=== PATIENT | male | born 1975 | race Caucasian/White ===

== ENCOUNTER 2022-05-02 14:29 | Emergency (ER) | payer OTHER ==
[2022-05-02 15:42] LABS: HEMATOCRIT 44.7 % (35.4-49); HEMOGLOBIN 15.4 G/dL (11.7-16.9); MCH 27.8 pg (25.7-33.7); MCHC 34.5 g/dl (32.0-35.9); MEAN CELL VOLUME 80.6 fl (80-96); MEAN PLT VOLUME 7.4 fl (7.5-11.1); PLATELET COUNT 205.7 10^3/uL (134-434); RBC 5.55 10^6/uL (4.00-5.60); RDW 16.2 % (11.9-15.9)
[2022-05-02 15:50] LABS: ALBUMIN 4.1 g/dl (3.4-5.0); BILIRUBIN,TOTAL 0.9 mg/dl (0.2-1); CALCIUM 9.4 mg/dl (8.5-10); CREATININE 0.8 mg/dl (0.55-1.3); TOT PROT 7.4 g/dl (6.4-8.2)
[2022-05-02 16:25] VITALS: BP 131/83; PULSE 100; TEMP 99.2; BMI 35.3
[2022-05-02 19:52] LABS: N-TERMINAL BNP 12.4 pg/ml (5-125)
== END 2022-05-02 17:08 | disposition home or self-care (01) ==
LOC: FER 14:29
DX: R22.2 Localized swelling, mass and lump, trunk (principal)
CPT/HCPCS: 36415; 71045-TC-FY; 71260-TC; 80053; 83880; 85027; 99285-25; Q9967

== ENCOUNTER 2022-05-30 12:46 | Emergency (ER) | payer OTHER ==
[2022-05-30 12:55] VITALS: BP 141/83; PULSE 84; TEMP 98.7; BMI 34.7
== END 2022-05-30 13:14 | disposition home or self-care (01) ==
LOC: FER 12:46
DX: T85.898A Other specified complication of other internal prosthetic devices, implants and grafts, initial encounter (principal)
CPT/HCPCS: 99282-25

== ENCOUNTER 2022-12-24 06:04 | Emergency (ER) | payer OTHER ==
[2022-12-24 06:12] VITALS: BP 143/99; PULSE 73; RESP 16; TEMP 97.6; BMI 37.7
[2022-12-24] MEDS ORDERED: KETOROLAC TROMETHAMINE 30 MG/1 ML VIAL IVPUSH ONE (06:22)
[2022-12-24] MEDS ORDERED: SODIUM CHLORIDE 1,000 ML IV ONE (06:22)
[2022-12-24] MEDS ORDERED: KETOROLAC TROMETHAMINE 30 MG/1 ML VIAL ONE (06:32)
[2022-12-24 08:13] LABS: HEMATOCRIT 56.2 % (35.4-49); HEMOGLOBIN 18.9 G/dL (11.7-16.9); MCHC 33.5 g/dl (32.0-35.9); MEAN CELL VOLUME 80.7 fl (80-96); PLATELET COUNT 174.9 10^3/uL (134-434); RBC 6.97 10^6/uL (4.00-5.60); RDW 17.7 % (11.9-15.9); WHITE BLOOD COUNT 9.3 10^3/uL (4.0-10.8)
[2022-12-24 08:17] LABS: CALCIUM 9.1 mg/dl (8.5-10); CREATININE 0.8 mg/dl (0.55-1.3); TOT PROT 7.1 g/dl (6.4-8.2)
[2022-12-24] MEDS ORDERED: SODIUM CHLORIDE 0.9% 1000 ML INFUS.BAG IV ONE (08:36)
== END 2022-12-24 09:49 | disposition home or self-care (01) ==
LOC: FER 06:04
PROC: 3E033GC Introduction of Other Therapeutic Substance into Peripheral Vein, Percutaneous Approach (ICD-10-PCS; principal; 2022-12-24)
DX: R10.9 Unspecified abdominal pain (principal)
CPT/HCPCS: 36415; 74176-TC; 80053; 81003; 81015; 85027; 87086; 96361; 96374; 99285-25

== ENCOUNTER 2023-02-27 14:01 | Emergency (ER) | payer OTHER ==
[2023-02-27 14:26] VITALS: TEMP 97.8; BMI 36.5
[2023-02-27 15:26] LABS: INR 1.2 (0.83-1.09); PROTHROMBIN TIME (PATIENT) 13.8 SEC (9.7-13.0)
[2023-02-27 15:29] LABS: ACTIVATED PTT 33.9 SECONDS (25.2-36.5)
[2023-02-27 15:39] LABS: BILIRUBIN,TOTAL 1.6 mg/dl (0.2-1); CALCIUM 8.6 mg/dl (8.5-10); TOT PROT 7.1 g/dl (6.4-8.2)
[2023-02-27 17:58] LABS: BASO % 0.2 % (0-2.0); EOS % 0.8 % (0-4.5); HEMATOCRIT 55.7 % (35.4-49); HEMOGLOBIN 18.6 GM/dL (11.7-16.9); LYMPH % 19.3 % (8-40); MCH 26.8 pg (25.7-33.7); MCHC 33.4 g/dl (32.0-35.9); MEAN CELL VOLUME 80.2 fl (80-96); MEAN PLT VOLUME 6.9 fl (7.5-11.1); MONO % 16.5 % (3.8-10.2); NEUT % 63.2 % (42.8-82.8); PLATELET COUNT 199 10^3/uL (134-434); RBC 6.94 M/mm3 (4.00-5.60); RDW 17.9 % (11.9-15.9); WHITE BLOOD COUNT 7.3 K/mm3 (4.0-10.0)
[2023-02-27 20:08] VITALS: BP 117/82; PULSE 82; RESP 18
== END 2023-02-27 20:08 | disposition left against medical advice (07) ==
LOC: FER 14:01
DX: R07.9 Chest pain, unspecified (principal); R00.2 Palpitations; R09.02 Hypoxemia; F41.9 Anxiety disorder, unspecified; Z20.822 Contact with and (suspected) exposure to COVID-19
CPT/HCPCS: 0241U-QW; 36415; 71045-TC-FY; 80053; 83735; 84484; 85025; 85379; 85610; 85730; 93005; 99285-25

== ENCOUNTER 2023-02-27 22:28 | Emergency (ER) | payer OTHER ==
[2023-02-27 22:40] VITALS: BP 125/75; PULSE 83; RESP 18; TEMP 98.3; BMI 36.7
[2023-02-27] MEDS ORDERED: SODIUM CHLORIDE 0.9% 500 ML INFUS.BAG IV ONE (23:19)
== END 2023-02-28 01:53 | disposition home or self-care (01) ==
LOC: JER 22:28
DX: R00.2 Palpitations (principal)
CPT/HCPCS: 71275-TC; 93005; 93010; 99284-25

== ENCOUNTER 2023-11-24 11:08 | Emergency (ER) | payer OTHER ==
[2023-11-24 11:16] VITALS: BMI 37.7
[2023-11-24] MEDS ORDERED: ALBUTEROL SO4 2.5/IPRATROPIUM 0.5 INH SOL 3 ML VIAL.NEB. NEB ONE ×4 (11:58→13:10)
[2023-11-24 12:19] LABS: VENOUS BASE EXCESS 1.3 mmol/L (-2-2); VENOUS O2 SATURATION 91.7 % (70-80); VENOUS PCO2 45.8 mmHg (38-52); VENOUS PH 7.389 (7.310-7.410)
[2023-11-24 12:23] LABS: BASO % 0.3 % (0-2.0); EOS % 1.4 % (0-4.5); HEMOGLOBIN 19.1 GM/dL (11.7-16.9); LYMPH % 16.3 % (8-40); MCH 25.2 pg (25.7-33.7); MCHC 32.4 g/dl (32.0-35.9); MEAN CELL VOLUME 77.8 fl (80-96); MEAN PLT VOLUME 6.6 fl (7.5-11.1); MONO % 18.2 % (3.8-10.2); NEUT % 63.8 % (42.8-82.8); PLATELET COUNT 170 10^3/uL (134-434); RDW 18.5 % (11.9-15.9); WHITE BLOOD COUNT 7.9 K/mm3 (4.0-10.0)
[2023-11-24 12:29] LABS: RBC 7.59 M/mm3 (4.00-5.60)
[2023-11-24 12:38] LABS: POTASSIUM 4.4 mmol/L (3.5-5.1)
[2023-11-24 12:40] LABS: BLOOD UREA NITROGEN 21.5 mg/dL (7-18); CALCIUM 9.2 mg/dL (8.5-10.1)
[2023-11-24 12:41] LABS: ALBUMIN 3.2 g/dl (3.4-5.0); MAGNESIUM 1.9 mg/dL (1.8-2.4)
[2023-11-24 12:43] LABS: INR 1.08 (0.83-1.09); PROTHROMBIN TIME (PATIENT) 12.5 SEC (9.7-13.0)
[2023-11-24 12:45] LABS: BILIRUBIN,TOTAL 0.8 mg/dL (0.2-1)
[2023-11-24 12:46] LABS: ACTIVATED PTT 38.2 SECONDS (25.2-36.5)
[2023-11-24 13:05] VITALS: BP 111/69; PULSE 90; RESP 19; TEMP 98.3
[2023-11-24] MEDS ORDERED: methylPREDNISolone NA SUCC 125 MG/2 ML VIAL IVPUSH ONE (13:07)
[2023-11-24] MEDS ORDERED: methylPREDNISolone NA SUCC 125 MG/2 ML VIAL ONE (13:10)
[2023-11-24] MEDS ORDERED: ALBUTEROL SO4 HFA INHALER IH ONE (17:24)
[2023-11-24] MEDS ORDERED: DOXYCYCLINE HYCLATE 100 MG CAPSULE PO ONE (17:27)
== END 2023-11-24 17:58 | disposition left against medical advice (07) ==
LOC: JER 11:08
PROC: 3E033NZ Introduction of Analgesics, Hypnotics, Sedatives into Peripheral Vein, Percutaneous Approach (ICD-10-PCS; principal; 2023-11-24)
PROC: 3E0F7GC Introduction of Other Therapeutic Substance into Respiratory Tract, Via Natural or Artificial Opening (ICD-10-PCS; 2023-11-24)
PROC: 3E0F7GC Introduction of Other Therapeutic Substance into Respiratory Tract, Via Natural or Artificial Opening (ICD-10-PCS; 2023-11-24)
DX: R06.2 Wheezing (principal); R09.02 Hypoxemia; R05.1 Acute cough; Z20.822 Contact with and (suspected) exposure to COVID-19
CPT/HCPCS: 0241U-QW; 36415; 71046-TC-FY; 71250-TC; 80053; 82803; 83735; 84484; 85025; 85379; 85610; 85730; 93005; 93010; 99285-25

== ENCOUNTER 2024-05-15 08:38 | Emergency (ER) | payer OTHER ==
[2024-05-15 08:44] VITALS: BP 143/82; PULSE 98; RESP 18; TEMP 97.6; BMI 37.7
[2024-05-15 10:40] LABS: BASO % 0.3 % (0-2.0); EOS % 1.9 % (0-4.5); HEMATOCRIT 63.3 % (35.4-49); LYMPH % 20.6 % (8-40); MCH 26.4 pg (25.7-33.7); MCHC 32.2 g/dl (32.0-35.9); MEAN CELL VOLUME 81.9 fl (80-96); MEAN PLT VOLUME 6.9 fl (7.5-11.1); MONO % 10.5 % (3.8-10.2); NEUT % 66.7 % (42.8-82.8); PLATELET COUNT 169 10^3/uL (134-434); RBC 7.73 M/mm3 (4.00-5.60); RDW 20.2 % (11.9-15.9); WHITE BLOOD COUNT 8.6 K/mm3 (4.0-10.0)
[2024-05-15 10:41] LABS: HEMOGLOBIN 20.4 GM/dL (11.7-16.9)
[2024-05-15] MEDS ORDERED: ACETAMINOPHEN INJECTION 100 ML IVPB ONE (10:43)
[2024-05-15 10:51] LABS: INR 1.01 (0.83-1.09); PROTHROMBIN TIME (PATIENT) 11.4 SEC (9.7-13.0)
[2024-05-15 11:00] LABS: POTASSIUM 4.6 mmol/L (3.5-5.1)
[2024-05-15 11:02] LABS: ALBUMIN 3.4 g/dl (3.4-5.0); BLOOD UREA NITROGEN 21.2 mg/dL (7-18); CALCIUM 8.8 mg/dL (8.5-10.1)
[2024-05-15 11:05] LABS: CREATININE 0.9 mg/dL (0.55-1.3)
[2024-05-15 11:07] LABS: BILIRUBIN,TOTAL 1.2 mg/dL (0.2-1); TOT PROT 6.9 g/dl (6.4-8.2)
[2024-05-15] MEDS: ACETAMINOPHEN 1000 MG/100 ML BAG IVPB ONE (11:13)
== END 2024-05-15 13:24 | disposition home or self-care (01) ==
LOC: JER 08:38
DX: R07.9 Chest pain, unspecified (principal); D75.1 Secondary polycythemia
CPT/HCPCS: 36415; 71046-TC-FY; 76705-TC; 80053; 84484; 85025; 85610; 85730; 93005; 93010; 99285-25

== ENCOUNTER 2025-04-23 02:37 | Emergency (ER) | payer OTHER ==
[2025-04-23 03:03] VITALS: BP 146/88; PULSE 78; RESP 18; TEMP 98.4; BMI 37.7
[2025-04-23 03:44] LABS: ABSOLUTE IMMATURE GRANULOCYTES 0.03 x10^3/uL (0.0-0.031); BASOPHILS # 0.02 x10^3/uL (0.01-0.08); EOSINOPHIL % 2.2 % (0.8-7.0); EOSINOPHILS # 0.19 x10^3/uL (0.04-0.54); HEMOGLOBIN 16.4 g/dL (13.7-17.5); MCHC 31.5 g/dl (32.3-36.5); MEAN CELL VOLUME 88.3 fl (79.0-92.2); MEAN PLT VOLUME 9.1 fl (9.4-12.4); MONOCYTE # 0.87 x10^3/uL (0.30-0.82); MONOCYTE % 10.2 % (5.3-12.2); PLATELET COUNT 196 x10^3/uL (163-337); RDW 15.2 % (12.1-15.9)
[2025-04-23 03:54] LABS: URINE APPEARANCE CLEAR; URINE BILIRUBIN NEGATIVE (NEGATIVE); URINE COLOR YELLOW; URINE GLUCOSE (UA) NEGATIVE (NEGATIVE); URINE KETONE NEGATIVE (NEGATIVE); URINE LEUK ESTERASE NEGATIVE (NEGATIVE); URINE NITRITE NEGATIVE (NEGATIVE); URINE PROTEIN 2+ (NEGATIVE); URINE UROBILINOGEN 0.2 mg/dL (0.2-1.0)
[2025-04-23 04:50] LABS: CALCIUM 9.8 mg/dL (8.5-10.1)
[2025-04-23 04:51] LABS: ALBUMIN 3.5 g/dl (3.4-5.0); BLOOD UREA NITROGEN 28.3 mg/dL (7-18); MAGNESIUM 1.9 mg/dL (1.8-2.4)
[2025-04-23 04:55] LABS: BILIRUBIN,TOTAL 0.5 mg/dL (0.2-1)
[2025-04-23 04:56] LABS: TOT PROT 6.8 g/dl (6.4-8.2)
[2025-04-23 05:09] LABS: HCV DIAGNOSTIC IN-HOUSE W/RFLX NON-REACTIVE (NONREACTIVE); HIV INTERPRETATION NEGATIVE (NEGATIVE)
[2025-04-23] MEDS ORDERED: AZITHROMYCIN 500 MG TABLET ONE (05:25)
[2025-04-23] MEDS: AZITHROMYCIN 500 MG TABLET PO ONE (05:31)
[2025-04-23 08:57] LABS: EPI CELLS 1 /uL (0-25.1); HYALINE CASTS 0.4 /uL (0-3.1); URINE BACTERIA 1 /uL (0-1359); URINE RBC 7 /uL (0-23.9); URINE WBC 2 /uL (0-25.8)
== END 2025-04-23 05:32 | disposition home or self-care (01) ==
LOC: FER 02:37
DX: R07.89 Other chest pain (principal); R09.02 Hypoxemia; Z20.2 Contact with and (suspected) exposure to infections with a predominantly sexual mode of transmission
CPT/HCPCS: 36415; 80053; 81003; 82550; 82553; 83735; 84484; 85025; 86803; 87389; 87491; 87591; 93005; 99284-25